=== PATIENT | male | born 1965 | race Caucasian/White ===

== ENCOUNTER 2022-04-14 10:46 | Emergency (ER) | payer BC, MEDICAID ==
[2022-04-14] MEDS ORDERED: Acetaminophen 500 MG Tab PO ONE (10:56)
[2022-04-14] MEDS ORDERED: Diazepam 2 MG Tab PO ONE (10:56)
[2022-04-14 12:26] VITALS: BP 122/71; PULSE 97
== END 2022-04-14 12:25 | disposition home or self-care (01) ==
LOC: MW.ED 10:46
DX: S12.400A Unspecified displaced fracture of fifth cervical vertebra, initial encounter for closed fracture (principal); W18.09XA Striking against other object with subsequent fall, initial encounter; Y93.02 Activity, running
CPT/HCPCS: 72125; 99283; A9270